=== PATIENT | male | born 1975 | race African-American/Black ===

== ENCOUNTER 2020-10-28 19:43 | Emergency (ER) | payer SELFPAY ==
[~2020-10-28] VITALS: Ht 193 cm; Wt 87.0 kg
[2020-10-28 20:04] VITALS: BP 140/80
[2020-10-29] MEDS: SODIUM CHLORIDE 0.9% 1,000 ML IV ONE (00:24)
[2020-10-29 00:36] LABS: BASOPHILS % 0.3 % (0.0-2.0); EOSINOPHILS % 0.9 % (0.0-5.0); HEMATOCRIT. 42.5 % (42.0-52.0); HEMOGLOBIN. 14.6 g/dL (14.0-18.0); LYMPHOCYTES % 38.9 % (20.0-50.0); MEAN CORPUSCULAR VOLUME 87.4 fL (80.0-94.0); MEAN PLATELET VOLUME 8.2 fl (7.4-10.4); MONOCYTES % 9.6 % (2.0-8.0); NEUTROPHILS % 50.3 % (40.0-76.0); PLATELET 248 x1000/uL (130-400); RED BLOOD CELL COUNT 4.86 mill/uL (4.7-6.1); RED CELL DISTRIBUTION WIDTH 14.3 % (11.6-14.6)
[2020-10-29 00:45] LABS: CHLORIDE 105 mEq/L (98-107)
[2020-10-29 00:50] LABS: ETHANOL BLOOD < 10 mg/dL
== END 2020-10-29 03:30 | disposition home or self-care (01) ==
LOC: ER 19:43
DX: R41.82 Altered mental status, unspecified (principal); F10.10 Alcohol abuse, uncomplicated; Y90.0 Blood alcohol level of less than 20 mg/100 ml
CPT/HCPCS: 36415; 80053; 80320; 85025; 93005; 96360; 99284; J7030; G0480